=== PATIENT | male | born 2000 | race Caucasian/White ===

== ENCOUNTER 2024-03-19 18:20 | Emergency (ER) | payer OTHER ==
[~2024-03-19] VITALS: Ht 190.5 cm; Wt 77.2 kg
[2024-03-19 18:31] VITALS: TEMP 97.1
[2024-03-19] MEDS: HYDROCODONE/ACETAMINOPHEN 5-325 MG TABLET PO ONE ×3 (21:02→22:57)
[2024-03-19] MEDS: IBUPROFEN 600 MG TABLET PO ONE (21:02)
[2024-03-19] MEDS ORDERED: IBUP-1554 PO (22:49)
[2024-03-19] MEDS ORDERED: HYDR-4062 PO (22:49)
[2024-03-19 23:08] VITALS: BP 134/75; PULSE 85; RESP 17; O2SAT 96
== END 2024-03-20 01:49 | disposition home or self-care (01) ==
LOC: EMS 18:20
DX: S92.021A Displaced fracture of anterior process of right calcaneus, initial encounter for closed fracture (principal); S92.111A Displaced fracture of neck of right talus, initial encounter for closed fracture; W01.0XXA Fall on same level from slipping, tripping and stumbling without subsequent striking against object, initial encounter; Y93.89 Activity, other specified; Y92.89 Other specified places as the place of occurrence of the external cause; Y99.8 Other external cause status
CPT/HCPCS: 29515; 73700; 99284; 73610-TC; Z7502; Z7610